=== PATIENT | female | born 1965 | race Asian ===

== ENCOUNTER 2018-10-06 19:54 | Emergency (ER) | payer SELFPAY ==
[2018-10-06 20:07] VITALS: BP 99/65
[2018-10-06] MEDS ORDERED: Lidocaine 1%* 5 ML VIAL INJ ONE (20:08)
--- NOTE | 2018-10-06 20:14 | UC ---
Laceration HPI - HPI Summary HPI Summary: Patient presents to urgent care with her son. Patient only speaks Palau[place], sinus and tripping. Patient and son both declined offer for hospital sponsored interpretation services. Pt visiting from [place] and will be leaving the [place] in 2 days. Patient was holding a bowl of noodles that broke. Patient sustained a laceration to her left fourth finger on the volar aspect. Patient applied pressure and came here. Patient states pain is 2 out of 10. Patient does not have any difficulty with movement. Patient is not on any blood thinners. Patient is not on any medications and is not immunocompromised. Patient does not know when her last tetanus was but states it was probably more than 10 years ago. Patient has not had any suture appears in the past. Patient with no allergies. Pt on no medicatioins RHD - History Of Current Complaint Chief Complaint: UCLaceration Stated Complaint: FINGER CUT Time Seen by Provider: 10/06/18 20:07 Hx Obtained From: Patient Laceration Location: Finger Mechanism Of Injury: Sharp Trauma Onset/Duration: Sudden Onset Severity: Moderate Pain Intensity: 2 - Allergies/Home Medications Allergies/Adverse Reactions: Allergies Allergy/AdvReac Type Severity Reaction Status Date / Time No Known Allergies Allergy Verified 10/06/18 20:07 Home Medications: Home Medications NK [No Home Medications Reported] 10/06/18 [History Confirmed 10/06/18] PMH/Surg Hx/FS Hx/Imm Hx Previously Healthy: Yes - Surgical History Surgical History: None - Family History Known Family History: Positive: Non-Contributory - Social History Occupation: Unemployed Lives: With Family Alcohol Use: None Substance Use Type: None Smoking Status (MU): Never Smoked Tobacco Review of Systems All Other Systems Reviewed And Are Negative: Yes Constitutional: Positive: Negative Skin: Positive: Other - laceration Physical Exam - Summary Physical Exam Summary: Vital Signs Reviewed: Yes A+Ox3, no distress Eyes: Conjunctiva Clear ENT: Hearing grossly normal neck: supple Respiratory: Positive: No respiratory distress, No accessory muscle use Cardiovascular: skin color reflect adequate perfusion Musculoskeletal Exam: Full flex/ext MCP, PIP, DIP against resistance Neurological: Positive: Alert, ambulatory without difficulty + gross sensation throughout Psychological: Positive: Normal Response To Family Skin: Positive: no rash, no ecchymosis V shaped laceration to left ring finger, volar aspect, 1.5 cm between PIP and DIP bleeding controlled. Vital Signs: Initial Vital Signs Temp 97.9 F 10/06/18 20:01 Pulse 55 10/06/18 20:01 Resp 16 10/06/18 20:01 BP 99/65 10/06/18 20:01 Pulse Ox 100 10/06/18 20:01 Images Hands: 1 - 1.5cm 2 - 1.5 Procedures - Procedure Summary Procedure Summary: verbal permission to treat time out completed with RN at bedside - son interpreted - [facility] sponsored interpretation services pt prepped in usual, sterile fashion copious irrigation with 250ml sterile saline under pressure pt tolerated well reviewed with pt wound care s/s infection return precautions splint applien by RN Laceration Repair - Laceration Repair 1 Description: Linear Laceration Size After Repair: Length (cm) - 1.5 Anesthesia Used: 1.0% Lido - 1.5 nk Cleansing Completed Via Routine Prep: Yes Irrigation With Pressure Irrigation Device: Yes Closure Method: Single Layer Suture Of: Skin Suture Type: Vicryl - 5-0 Laceration Course/Dx - Course/Dx Course Of Treatment: Patient presents to urgent care with her son. Patient sustained a laceration to her left ring finger from a bowl that broke and she was cooking. Patient CSM intact. Patient with good range of motion and strength. Patient with a piece shaped 1.5 cm laceration. Laceration closed patient tolerated well. We'll bandage and splint placed by nurse. Discussed at length with son sinus symptoms of infection as well as wound care. Patient also given a tetanus as she has nowhere last was potatoes when 10 years ago. Patient will be returning to [place] and suture sutures removed there. Questions were asked and answered - Diagnosis Provider Diagnosis: Laceration Discharge - Sign-Out/Discharge Documenting (check all that apply): Patient Departure All imaging exams completed and their final reports reviewed: No Studies - Discharge Plan Condition: Stable Disposition: HOME Patient Education Materials: Care For Your Stitches (DC), Laceration (ED), Tdap and Td Vaccines for Adults (ED) Referrals: No Primary Care Phys,NOPCP [Primary Care Provider] - Additional Instructions: -- your stitches should come out in 8-10 days - you can return here, go to your Doctor or any urgent care center - okay to alternate ibuprofin (advil, motrin)600mg and tylenol (acetaminophen) [id number] every 3hours as needed for pain -Anticipate increased discomfort over the next several hours as the numbing medication wears off - your arm may be sore tomorrow from the tetanus vaccination - this is normal -Keep your wound clean and dry - no soaking for 24 hours. Then, okay for wound to get wet - pat dry, don't rub -apply a thin layer of antibiotic ointment (neosporin, polysporin) 2-3 times a day - when you have a cut, you will have a scar. To minimize scar formation -wear splint as much as possible for next 4-5days Then wear for comfort - keep your wound clean - monitor for signs of infection - reddness, red streaking, odor, green drainage - Contact your doctor or return here with questions or concerns - Billing Disposition and Condition Condition: STABLE Disposition: Home
[2018-10-06] MEDS ORDERED: Tetan/Diph/Pertus SYR(Tdap)* 0.5 ML SYR(BOOSTRIX) use SYR IM ONE (20:42)
== END 2018-10-06 21:15 | disposition home or self-care (01) ==
LOC: UCEAST 19:54
DX: S61.215A Laceration without foreign body of left ring finger without damage to nail, initial encounter (principal); Y93.G3 Activity, cooking and baking; Y92.9 Unspecified place or not applicable
CPT/HCPCS: 12001; 90471; 90715; 99202; G0463